=== PATIENT | female | born 1975 | race Caucasian/White ===

== ENCOUNTER 2024-05-09 09:08 | Outpatient (AMB) | payer OTHER, SELFPAY ==
--- NOTE | 2024-05-09 09:37 | AM.OFFWIN_ITS ---
Intake Vital Signs 05/09/24 09:38 Height 5 ft 3 in Weight 152 lb BMI 26.9 BP 102/60 Blood Pressure Location Rt brachial Position Sitting Respiration 15 Pulse 84 Pulse Source Pulse Oximeter Temp 98.3 F Temp Source Oral Pulse Oximetry (%) 98 Oxygen Delivery Method Room Air Intake Visit Reasons: EP Strep?? 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 PFSH Social History Patient Tobacco Use Status: Never used Tobacco Review of Systems Const Denies chills, Denies fatigue, Reports fever(s) (Patient felt febrile 2 days ago), Denies headache(s) and Denies weakness ENT Denies dizziness and Denies headache(s) Card Denies dyspnea Resp Denies cough, Denies dyspnea, Denies wheezing and Denies other ( shortness of breath) Musc Denies numbness and Denies tingling Neuro Denies dizziness, Denies headache(s), Denies numbness, Denies tingling, Denies paresthesias and Denies weakness Psych Denies anxiety and Denies depression Endo Denies fatigue Aller/Immun Denies wheezing Physical Exam Vital Signs: Last Vital Signs Temp 98.3 F 05/09/24 09:38 Pulse 84 05/09/24 09:38 Resp 15 05/09/24 09:38 BP 102/60 05/09/24 09:38 Pulse Ox 98 05/09/24 09:38 Oxygen Delivery Method Room Air 05/09/24 09:38 BMI result Body Mass Index 26.9 Const General: no acute distress and well developed Nutritional Appearance: well nourished Orientation/consciousness: patient oriented x3 HEENT Other: Pharynx is erythematous with patchy exudates and tonsillar swelling + anterior cervical chain LAD Head: Yes normocephalic and Yes atraumatic Eyes General: appearance normal, both eyes and all related structures Pupils: Equal, round and reactive pupils present EOM: EOMs intact bilaterally Resp Effort & Inspection: normal respiratory effort Auscultation: clear to auscultation bilaterally Cardio Rate: regular rate Rhythm: regular rhythm Heart sounds: S1 normal heart sound present, S2 normal heart sound present, no gallops, no murmurs and no rubs Neuro General: patient oriented x3 and gait normal Cranial nerves: Yes Equal, round and reactive pupils present Psych Affect: normal affect Results AMB Rapid Strep AMB Rapid Strep Positive Last Edit by Carolin Grace CMA on 05/09/24 09:54 Results Reviewed Results Reviewed: Laboratory Last Values Strep Scn [facility] Positive 05/09/24 09:42 Assessment & Plan Assessment & Plan (1) Strep pharyngitis: Code(s): J02.0 - Streptococcal pharyngitis Plan +strep test and + patchy exudates Strep pharyngitis Start amoxicillin Warm saltwater gargle Hydrate well Get plenty of rest Finish all antibiotic unless there is a problem. Call for any problems. Orders: Orders AMB Rapid Strep Screen 05/09/24 Z13.9 - Encounter for screening, unspecified Medications: New amoxicillin 500 mg PO Q12H 20 tabs 0RF 10 days Coding Level of Care Code Est Pt Level 3 (18021) Diagnoses Strep pharyngitis J02.0
[2024-05-09 09:38] VITALS: BP 102/60; PULSE 84; RESP 15; TEMP 36.8; O2SAT 98; BMI 26.9
== END 2024-05-09 10:43 | disposition home or self-care (01) ==
PROVIDERS: Visit Provider Family Medicine
DX: J02.0 Streptococcal pharyngitis (principal)

== ENCOUNTER → 2024-05-09 09:08 | Outpatient (BNVA) | payer OTHER, SELFPAY | DX: J02.0 Streptococcal pharyngitis (principal) | CPT/HCPCS: 87880 ==